=== PATIENT | male | born 1940 | race Caucasian/White ===

== ENCOUNTER 2017-04-19 11:42 | Emergency (ER) | payer OTHER ==
[2017-04-19 11:48] VITALS: TEMP 98.6; O2SAT 94
--- NOTE | 2017-04-19 11:58 | EDPHY ---
H & P Stated Complaint: cough bringing up dark phlem Time Seen by Provider: 04/19/17 11:57 HPI/ROS: CHIEF COMPLAINT: URI symptoms x2 weeks HISTORY OF PRESENT ILLNESS: 76-year-old male presents emergency department with his who has similar symptoms complaining of cold symptoms for the past 2 weeks with a cough that is worsening. Patient reports he started 2 weeks ago with nasal congestion, sore throat, ear pain, fatigue, 1 week ago he started coughing. Cough is productive with dark sputum. Patient reports body aches. He took NyQuil last night for his symptoms other than that he has not taken any medications. Patient is from [place] and drove to [place] during this illness. Symptoms started before the trip. No calf pain, no chest pain. REVIEW OF SYSTEMS: A comprehensive 10 point review of systems is otherwise negative aside from elements mentioned in the history of present illness. Source: Patient, Family Exam Limitations: Other (Hard of hearing) - Personal History Current Tetanus/Diphtheria Vaccine: Unsure Current Tetanus Diphtheria and Acellular Pertussis (TDAP): Unsure - Medical/Surgical History Hx Asthma: No Hx Chronic Respiratory Disease: No Hx Diabetes: No Hx Cardiac Disease: No Hx Renal Disease: No Hx Cirrhosis: No Hx Alcoholism: No Hx HIV/AIDS: No Hx Splenectomy or Spleen Trauma: No Other PMH: high chol. - Social History Smoking Status: Never smoked - Physical Exam Exam: General: Alert, nontoxic. ENT: Tympanic membranes clear, external auditory canal, external ear and surrounding soft tissue including over the mastoid unremarkable. Nasopharynx is n injected, there is yellow rhinorrhea. Oropharynx with erythema. There is no exudate. No tonsillar hypertrophy. No asymmetry. The uvula is midline. No elevation of tongue. There is no hoarseness. No drooling, patient has good control of their oral secretions. No trismus. No stridor. Cardiac: Regular rate and rhythm. Respiratory: Lung sounds diminished throughout. Neurological: no meningismus. Skin: No rashes. Constitutional: Initial Vital Signs Temperature (C) 37 C 04/19/17 11:46 Heart Rate 98 04/19/17 11:46 Respiratory Rate 14 04/19/17 11:46 Blood Pressure 159/90 H 04/19/17 11:46 O2 Sat (%) 94 04/19/17 11:46 O2 Delivery Mode Room Air Allergies/Adverse Reactions: No Known Allergies Allergy (Unverified 04/19/17 11:48) Home Medications: Medication Instructions Recorded AZITHROMYCIN [Z-PACK] 250 mg PO DAILY #6 tab 04/19/17 Albuterol [Proventil Inhaler HFA 1 - 2 puffs IH Q4H #1 mdi 04/19/17 (*)] Aspirin 81mg (*) 04/19/17 Benadryl 04/19/17 Benzonatate [Tessalon Pearles (RX)] 100 mg PO Q8 PRN #20 cap 04/19/17 Fluticasone Nasal [Flonase Nasal 1 sprays NASAL DAILY #1 mdi 04/19/17 [place] (RX)] Metrogel 04/19/17 Multivitamin 04/19/17 Rosuvastatin Calcium 04/19/17 Tapazole 04/19/17 Tiazac 04/19/17 Medical Decision Making - Diagnostics Imaging Results: Imaging Impressions Chest X-Ray 04/19/17 11:59 Impression: 1. Nodular right upper lobe opacity. CT chest is recommended for further evaluation. 2. Bronchitis without evidence of pneumonia. Findings discussed with Marcelle Nesbitt NP on 04/19/2017 at 12:31 p.m. Imaging: Discussed imaging studies w/ scallop cutter Radiologist, I viewed and interpreted images myself ED Course/Re-evaluation: Chest x-ray and influenza obtained. Patient is given 650 mg of Tylenol. Influenza is negative, chest x-ray shows a bronchitis no evidence of pneumonia. An incidental right lobe nodule opacity is seen and the radiologist recommends a CT chest in the next month. The patient is aware of this. Patient is given strict return precautions for any worsening symptoms, shortness of breath, chest pain, new symptoms or concerns. Due to the length of the patient's symptoms and cough I have prescribed Zithromax, albuterol inhaler, Flonase and Tessalon Perles. Differential Diagnosis: Diagnosis considered but not limited to URI, influenza, pneumonia, bronchitis - Data Points Laboratory Results: 04/19/17 12:19 Influenza A,B Rapid NEGATIVE FOR FLU (NEGATIVE) Medications Given: Discontinued Medications Acetaminophen (Tylenol) 650 mg PO EDNOW ONE Stop: 04/19/17 12:14 Last Admin: 04/19/17 12:35 Dose: 650 mg Departure - Departure Disposition: Home, Routine, Self-Care Clinical Impression: Nodule of right lung Acute bronchitis Qualifiers: Bronchitis organism: unspecified organism Qualified Code(s): J20.9 - Acute bronchitis, unspecified Condition: Good Instructions: Acute Bronchitis (ED), Pulmonary Nodules (ED) Additional Instructions: Use albuterol inhaler, 2 puffs every 4-6 hours as needed for cough. Use flonase , 1 spray in each nostril daily. Drink plenty water, rest, take your antibiotics as prescribed. Return to the emergency department for worsening symptoms, chest pain or shortness of breath. The radiologist on incidental finding of a pulmonary nodule that he recommends getting a CT scan of your chest in the next month to evaluate. Referrals: Bhavna Crocker MD [[facility]] - As per Instructions ( primary care doctor singer songwriter.) Prescriptions: Albuterol [Proventil Inhaler HFA (*)] 1 - 2 puffs IH Q4H #1 mdi AZITHROMYCIN [Z-PACK] 250 mg PO DAILY #6 tab Benzonatate [Tessalon Pearles (RX)] 100 mg PO Q8 PRN #20 cap PRN Reason: Cough, Moderate Fluticasone Nasal [Flonase Nasal [place] (RX)] 1 sprays NASAL DAILY #1 mdi
[2017-04-19] MEDS ORDERED: ACETAMINOPHEN 325 MG TAB PO ONE (12:13)
[2017-04-19 13:21] VITALS: BP 142/78; PULSE 88; RESP 18
== END 2017-04-19 13:21 | disposition home or self-care (01) ==
DX: J20.9 Acute bronchitis, unspecified (principal); R91.1 Solitary pulmonary nodule; Z79.82 Long term (current) use of aspirin